=== PATIENT | female | born 1985 | race Caucasian/White ===

== ENCOUNTER 2020-07-05 09:59 | Emergency (ER) | payer OTHER, SELFPAY ==
[2020-07-05 10:08] VITALS: BP 122/82; PULSE 105; RESP 18; TEMP 36.8; O2SAT 100
[2020-07-05 10:10] VITALS: BP 122/82; PULSE 101; RESP 18; TEMP 36.8; O2SAT 100; BMI 103.7
[2020-07-05 10:20] VITALS: BP 139/98; PULSE 103; RESP 15; TEMP 36.7
[2020-07-05] MEDS: 0.9 % Sodium Chloride 1,000 ML 999 ML IVCONT (11:06)
[2020-07-05] MEDS: Metoclopramide HCl 10 MG/2 ML VIAL IVPUSH (11:07)
[2020-07-05] MEDS: methylPREDNISolone Sod Succ/PF 125 MG/2 ML VIAL IVPUSH (11:07)
[2020-07-05] MEDS: diphenhydrAMINE HCL 50 MG/ML VIAL 25 MG IVPUSH (11:07)
--- NOTE | 2020-07-05 11:47 | ED_ITS ---
HPI - Headache General Chief Complaint: Headache Stated Complaint: MIGRAINE Time Seen by Provider: 07/05/20 10:27 Source: patient Mode of arrival: ambulatory History of Present Illness HPI Narrative: 34-year-old female with a past medical history of pseudotumor cerebri complaining of constant migraine headache x1 month. Admits was recently seen and treated in ED for similar symptoms, had negative labs and head CT. Reports symptoms similar to prior migraines, not maximal at onset, has been taking at home medications without relief. Admits to visual changes/ seeing specks, nausea, vomiting, neck pain, photophobia. denies numbness, tingling, weakness, CP/SOB, head trauma MD elicited complaint: migraine Onset (ago): month(s) Related Data Allergies Allergy/AdvReac Type Severity Reaction Status Date / Time ibuprofen [Ibuprofen] Allergy Mild SWELLING Unverified 06/14/20 17:30 acetaminophen [From TYLENOL] Allergy Unknown UNKNOWN Unverified 06/14/20 17:30 Review of Systems Review of Systems: Constitutional: No Weight loss, No Fever, No Chills, No Night Sweats, No Fatigue ENT/Mouth: No Hearing loss, No Ear Pain, No Nasal Congestion, No Sinus Pain, No sore throat, No Rhinorrhea, No Swallowing Difficulty Eyes: No Eye Pain, No Swelling, No Redness, No Foreign Body, No Discharge, + Vision Changes (similar to prior migraines) Cardiovascular: No Chest Pain, No SOB, No Dyspnea on Exertion, No Orthopnea Respiratory: No Cough, No Sputum, No Wheezing Gastrointestinal: + Nausea, + Vomiting, No Diarrhea, No Constipation, No abdominal Pain Genitourinary: No Dysuria, No Urinary Frequency, No Hematuria Musculoskeletal: No joint pain, No Myalgias, No Joint Swelling Skin: No Skin Lesions, No rash Neuro: No Weakness, No Numbness, No Paresthesias, No Loss of Consciousness, No Dizziness, + Headache Yes all other systems are reviewed and are negative Eyes: Eyes: Denies photophobia Neurologic: Reports Abnormal speech present and Denies Sensory deficit (Neuro) [facility] Past Medical History Attestation statement: The following information was validated with the patient. Medical History (Updated 07/05/20 @ 11:52 by KAMILLA Anderson) Pseudotumor cerebri Social History Social History Alcohol intake: never Smoking Status: Never smoker Use of substances other than those prescribed or required for medical reasons: No Advance Directives: Yes Advance Directives Information Provided: No Advance Directives on File: No Physical Exam Vital Signs and I&O and Narrative: Vital Signs and I&O: Vital Signs Temp 98.1 F 07/05/20 12:00 Pulse 88 07/05/20 12:00 Resp 16 07/05/20 12:00 BP 109/65 07/05/20 12:00 Pulse Ox 99 07/05/20 12:00 Intake & Output 07/04/20 07/05/20 07/05/20 18:59 06:59 18:59 Weight 241 kg Body Mass Index 103.7 Const: General: cooperative and healthy appearing Orientation/consciousness: patient oriented x3 Limitations: no limitations HENMT: Head: Yes normal to inspection Ears: hearing grossly normal bilaterally General nose exam: Normal external nose present Face and sinus: Yes normal facial exam Mouth: Normal oral and palatal mucosa present Throat: Yes uvula midline Eyes: General: appearance normal, both eyes and all related structures Visual Zapata: normal visual zapata by confrontation Pupils: Equal, round and reactive pupils present EOM: EOMs intact bilaterally Direct Ophthalmoscopy: normal light reflex and No photophobia Neck: Neck: Yes normal visual inspection, Yes full ROM, Yes no lymphadenopathy, Yes no meningeal signs and Yes trachea midline Resp: Effort & Inspection: normal respiratory effort and no stridor Auscultation: clear to auscultation bilaterally Cardio: Rate: regular rate Heart sounds: S1 normal heart sound present and S2 normal heart sound present GI: Inspection: Yes normal to inspection Palpation (GI): Soft to palpation, nontender, no guarding and not rigid Skin: Wounds: no wounds Neuro: Other: ambulating with steady a General: patient oriented x3 and no meningeal signs Cranial nerves: Yes CN's II-XII intact bilaterally and Yes Equal, round and reactive pupils present Cognition (Neuro): normal cognition Speech: Abnormal speech present Gait exam (Neuro): Normal gait present Motor exam (neuro): 5/5 motor strength present throughout Sensory Exam: No Sensory deficit (Neuro) Extrem: General: Yes normal to inspection Course Course Course Narrative: 0690-- patient reports symptomatic improvement in the ED after symptomatic therapies. Requesting to be discharged. Discussed with patient she needs to follow-up with her neurologist MDM - Headache MDM Narrative Medical decision making narrative: 34-year-old female with a past medical history of pseudotumor cerebri complaining of constant migraine headache x1 month. Admits was recently seen and treated in ED for similar symptoms, had negative labs and head CT. Admits to visual changes/ seeing specks, nausea, vomiting, neck pain, photophobia. On exam VSS, NAD/ well-appearing, no focal ne uro deficits. Symptoms similar to prior migraine headaches. Low concern for ICH/meningitis/ encephalitis /SAH lab/ head CT from 06/26 reviewed and WNL plan: Symptomatic treatment, reassess Differential Diagnosis Differential diagnosis: Likely migraine, subarachnoid hemorrhage, headache and meningitis Medical Records Attestation: I reviewed the patient's medical records.
[2020-07-05 12:00] VITALS: BP 109/65; PULSE 88; RESP 16; TEMP 36.7; O2SAT 99
== END 2020-07-05 12:43 | disposition home or self-care (01) ==
PROVIDERS: Emergency Provider Internal Medicine; PCP Physician Assistant Medical
DX: R51.9 Headache, unspecified (principal); G93.2 Benign intracranial hypertension; Z79.899 Other long term (current) drug therapy
CPT/HCPCS: 96361; 96374; 96375; 99284; J1200; J2765; J2930

== ENCOUNTER 2020-07-20 08:27 | Emergency (ER) | payer OTHER, SELFPAY ==
[2020-07-20 09:02] VITALS: BP 120/87; PULSE 100; RESP 18; TEMP 36.5; O2SAT 96; BMI 47.0
--- NOTE | 2020-07-20 10:01 | CT_ITS ---
EXAMINATION: CT HEAD WITHOUT CONTRAST CLINICAL INFORMATION: History of pseudotumor cerebri COMPARISON: June 25, 2020 and January 16, 2019 TECHNIQUE: Contiguous axial imaging was performed from the skull base to vertex without intravenous administration of contrast. This CT examination was performed using dose optimization techniques as appropriate, variously including the following: *Automated exposure control *Adjustment of mA and/or kV according to patient size (this includes techniques or standardized protocols for targeted exams where dose is matched to indication/reason for exam; i.e. extremities or head) *Use of iterative reconstruction technique DLP: 732 mGy-cm FINDINGS: There is no evidence of acute intracranial hemorrhage or territorial infarction. No abnormal mass effect or midline shift is seen. Christianson to white matter differentiation is well preserved. No extra-axial fluid collections are identified. The ventricles are normal in size. There is no abnormal attenuation within the brain parenchyma. The osseous structures and soft tissues are normal. The mastoid air cells and visualized portions of the paranasal sinuses are well aerated. CT/CT head/brain wo con IMPRESSION: No acute intracranial pathology.
--- NOTE | 2020-07-20 10:06 | ED.HA ---
HPI - Headache General Chief Complaint: Headache Stated Complaint: MIGRAINE Time Seen by Provider: 07/20/20 09:01 Source: patient Mode of arrival: ambulatory Limitations: no limitations History of Present Illness HPI Narrative: patient comes to the emergency room complaining of a migraine headache. Patient is known to have pseudotumor cerebral. Patient states she has had multiple medications including IV Benadryl, Toradol, p.o.Fioricet and several other medications. Patient states that she called her neurologist last night, the left a voice message which the patient shared with me, instructing the patient to come to the emergency room to get a lumbar puncture. Patient states she has had 5 lumbar punctures in her last time, last 1 was approximately 1 year ago. Patient states that every time she gets a lumbar puncture, she gets severe rebound headache and is usually hospitalized for pain management overnight. Patient denies any neurological deficits MD elicited complaint: headache Related Data Previous Rx's Medication Instructions Recorded hydromorphone [Dilaudid] 2 mg PO Q8H #3 tab 07/20/20 metoclopramide HCl [Reglan] 5 mg PO Q6H PRN #5 tab 07/20/20 Allergies Allergy/AdvReac Type Severity Reaction Status Date / Time ibuprofen [Ibuprofen] Allergy Mild SWELLING Unverified 06/14/20 17:30 acetaminophen [From TYLENOL] Allergy Unknown UNKNOWN Verified 07/20/20 09:05 Review of Systems Review of Systems: Constitutional : No Weight loss, No Fever, No Chills, No Night Sweats, No Fatigue, No Malaise ENT/Mouth : No Hearing loss, No Ear Pain, No Nasal Congestion, No Sinus Pain, No Hoarseness, No sore throat, No Rhinorrhea, No Swallowing Difficulty Eyes: No Eye Pain, No Swelling, No Redness, No Foreign Body, No Discharge, No Vision Changes Cardiovascular : No Chest Pain, No SOB, No Dyspnea on Exertion, No Orthopnea, No Edema, No Palpitations Respiratory : No Cough, No Sputum, No Wheezing, No Smoke Exposure, No Dyspnea Gastrointestinal : No Nausea, No Vomiting, No Diarrhea, No Constipation, No abdominal Pain, No Hematochezia, No Melena Genitourinary : no irregular bleeding, No Dysuria, No Urinary Frequency, No Hematuria, No Urinary Incontinence, No Urgency, No Flank Pain, No Urinary Flow Changes, No Hesitancy Musculoskeletal : No joint pain, No Myalgias, No Joint Swelling Skin : No Skin Lesions, No rash Neuro : No Weakness, No Numbness, No Paresthesias, No Loss of Consciousness, No Dizziness, migraine headache, pressure sensation Psych : No Anxiety/Panic, No Depression, No SI/HI/AH/VH, No Social Issues, Heme/Lymph: No Bruising, No Bleeding,No Lymphadenopathy Endocrine : No Polyuria, No Polydipsia, No Temperature Intolerance [facility], [facility] Past Medical History Medical History Pseudotumor cerebri Social History Social History Alcohol intake: never Smoking Status: Never smoker Smoked in Last 30 Days: No Use of substances other than those prescribed or required for medical reasons: No Advance Directives: No Advance Directives Information Provided: No Physical Exam Vital Signs: Vital Signs: Vital Signs Temp Pulse Resp BP Pulse Ox 07/20/20 14:56 98 102/64 98 07/20/20 12:32 16 07/20/20 09:02 97.7 F 100 18 120/87 96 Body Mass Index 47.0 Appearance: Alert. Oriented X3. No acute distress. Eyes: Pupils equal, round and reactive to light. ENT: Pharynx normal. Neck: Normal inspection. Neck supple. No lymph nodes noted. No crepitus CVS: Normal heart rate and rhythm. Pulses normal. Normal S1 and S2 Respiratory: No respiratory distress. Breath sounds normal. No Wheezing. No rales Abdomen: Soft and nontender. No rigidity. No distention. good BS x4 Skin: Skin warm and dry. Normal skin color. Normal skin turgor. Extremities: No lower extremity edema. No lower extremity edema. No Lacerations. No Rash Neuro: Oriented X 3. No motor deficit. No sensory deficit. Moving all extermities. No slurred speech. Course Course Course Narrative: Patient's lumbar puncture was successful, opening pressure 35, CSF labs pending. Patient states that as expected, she has rebound migraine, very severe 07/07. I discussed the above-mentioned with our hospitalist, we will initially give her Dilaudid, diphenhydramine, Phenergan and we will re-evaluate the pain level, if patient is still not feeling well, she will be admitted. after IV medications, patient states she feels better, states that the pressure in her head is resolved, has residual headache. Patient is afraid that she will have rebound headache, I discussed with her that she we will send home with a prescription of 1 time oral Dilaudid and Reglan MDM - Headache Lab Data Result diagrams: 07/20/20 11:23 07/20/20 11:23 Labs: Lab Results 07/20/20 07/20/20 07/20/20 Range/Units 11:23 11: 11:23 WBC 10.7 (4.8-10.8) X10*3/uL RBC 4.97 (4.20-5.50) X10*6/uL Hgb 14.5 (12.0-16.0) g/dl Hct 45.8 (37-47) % MCV 92.2 (80-98) fL MCH 29.2 (27.0-33.0) pg MCHC 31.7 (31.0-35.0) g/dl RDW 13.2 (11.0-16.0) % Plt Count 178 (160-400) X10*3/uL MPV 11.0 (9.4-12.3) fL Immature Gran % (Auto) 0.4 (0.0-0.4) % Neut % (Auto) 68.3 (45-73) % Lymph % (Auto) 21.7 (20-40) % [place] % (Auto) 6.4 (2-11) % Eos % (Auto) 2.7 (0-4) % Baso % (Auto) 0.5 (0-2) % Lymph # (Auto) 2.3 (1.2-4.9) X10*3/uL [place] # (Auto) 0.7 (0.1-1.2) X10*3/uL Eos # (Auto) 0.3 (0.0-0.4) X10*3/uL Baso # (Auto) 0.1 (0.0-0.2) X10*3/uL Abs Immat Gran (auto) 0.04 H (0.00-0.03) X10*3/uL Absolute Neuts (auto) 7.3 (2.0-8.3) X10*3/uL Absolute Nucleated RBC 0.000 (0.0-0.012) X10*3/uL Nucleated RBC % (auto) 0.0 (0.0-0.2) /100WBC PT 12.3 (10.8-13.0) SEC INR 1.0 (0.9-1.1) Sodium 136 (135-145) mmol/L Potassium 4.1 (3.3-5.1) mmol/l Chloride 104 (96-108) mmol/L Carbon Dioxide 21 L (22-29) mmol/L Anion Gap 15 (12-20) BUN 13 (9-16) mg/dL Creatinine 0.79 (0.5-1.4) mg/dL Estim Creat Clear Calc 114.6 Estimated GFR > 60 Random Glucose 87 (60-115) mg/dL Calcium 9.4 (8.4-10.2) mg/dL CSF Tube Number CSF Volume ML CSF Appearance CSF Color CSF WBC MM*3 CSF RBC MM*3 CSF Lymphocytes % CSF Monocytes % % CSF Glucose mg/dL CSF Total Protein (15-45) mg/dL 07/20/20 07/20/20 07/20/20 Range/Units 13:01 13:01 13:01 WBC (4.8-10.8) X10*3/uL RBC (4.20-5.50) X10*6/uL Hgb (12.0-16.0) g/dl Hct (37-47) % MCV (80-98) fL MCH (27.0-33.0) pg MCHC (31.0-35.0) g/dl RDW (11.0-16.0) % Plt Count (160-400) X10*3/uL MPV (9.4-12.3) fL Immature Gran % (Auto) (0.0-0.4) % Neut % (Auto) (45-73) % Lymph % (Auto) (20-40) % [place] % (Auto) (2-11) % Eos % (Auto) (0-4) % Baso % (Auto) (0-2) % Lymph # (Auto) (1.2-4.9) X10*3/uL [place] # (Auto) (0.1-1.2) X10*3/uL Eos # (Auto) (0.0-0.4) X10*3/uL Baso # (Auto) (0.0-0.2) X10*3/uL Abs Immat Gran (auto) (0.00-0.03) X10*3/uL Absolute Neuts (auto) (2.0-8.3) X10*3/uL Absolute Nucleated RBC (0.0-0.012) X10*3/uL Nucleated RBC % (auto) (0.0-0.2) /100WBC PT (10.8-13.0) SEC INR (0.9-1.1) Sodium (135-145) mmol/L Potassium (3.3-5.1) mmol/l Chloride (96-108) mmol/L Carbon Dioxide (22-29) mmol/L Anion Gap (12-20) BUN (9-16) mg/dL Creatinine (0.5-1.4) mg/dL Estim Creat Clear Calc Estimated GFR Random Glucose (60-115) mg/dL Calcium (8.4-10.2) mg/dL CSF Tube Number 2 1 4 CSF Volume 3.0 3.5 ML CSF Appearance CLEAR CLEAR CLEAR CSF Color COLORLESS COLORLESS CSF WBC 2 2 MM*3 CSF RBC 0 0 MM*3 CSF Lymphocytes 50 100 % CSF Monocytes % 50 % CSF Glucose 60 mg/dL CSF Total Protein 38.7 (15-45) mg/dL Discharge Plan Discharge Clinical Impression: Pseudotumor cerebri Migraine Qualifiers: Migraine type: unspecified Status migrainosus presence: without status migrainosus Intractability: not intractable Qualified Code(s): G43.909 - Migraine, unspecified, not intractable, without status migrainosus Patient Disposition: Home, Self-Care Instructions: Migraine Headache (ED) Additional Instructions: 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 Please follow-up with your primary care physician tomorrow. If you have any worsening or new symptoms, please return to the emergency room or call 911 Prescriptions: New metoclopramide HCl [Reglan] 5 mg tablet 5 mg PO Q6H PRN (Reason: nausea and vomiting) Qty: 5 RF: 0 hydromorphone [Dilaudid] 2 mg tablet 2 mg PO Q8H Qty: 3 RF: 0
[2020-07-20 11:28] LABS: MANUAL DIFF FLAG NO
[2020-07-20 11:29] LABS: Basophils Absolute Auto 0.1 X10*3/uL (0.0-0.2); Basophils Percent Auto 0.5 % (0-2); Eosinophils Absolute Auto 0.3 X10*3/uL (0.0-0.4); Eosinophils Percent Auto 2.7 % (0-4); Hematocrit 45.8 % (37-47); Hemoglobin 14.5 g/dl (12.0-16.0); Imm Gran Abs Auto 0.04 X10*3/uL (0.00-0.03); Imm Gran Pct Auto 0.4 % (0.0-0.4); Lymphocytes Absolute Auto 2.3 X10*3/uL (1.2-4.9); Lymphocytes Percent Auto 21.7 % (20-40); Mean Corpuscular HGB Conc 31.7 g/dl (31.0-35.0); Mean Corpuscular Hemoglobin 29.2 pg (27.0-33.0); Mean Corpuscular Volume 92.2 fL (80-98); Monocytes Absolute Auto 0.7 X10*3/uL (0.1-1.2); Monocytes Percent Auto 6.4 % (2-11); Neutrophils Absolute Auto 7.3 X10*3/uL (2.0-8.3); Neutrophils Percent Auto 68.3 % (45-73); Platelet Count 178 X10*3/uL (160-400); Red Blood Count 4.97 X10*6/uL (4.20-5.50); Red Cell Distribution Width 13.2 % (11.0-16.0); White Blood Count 10.7 X10*3/uL (4.8-10.8)
[2020-07-20 11:49] LABS: Anion Gap 15 (12-20); Blood Urea Nitrogen 13 mg/dL (9-16); Calcium 9.4 mg/dL (8.4-10.2); Carbon Dioxide 21 mmol/L (22-29); Chloride 104 mmol/L (96-108); Creatinine Clr Calc Pharmacy 114.6; Estimated Glomerular Filt Rate > 60; Glucose Random 87 mg/dL (60-115); Potassium 4.1 mmol/l (3.3-5.1); Sodium 136 mmol/L (135-145)
[2020-07-20 11:58] LABS: Prothrombin Time 12.3 SEC (10.8-13.0)
[2020-07-20] MEDS: Morphine Sulfate 2 MG/ML CARTRIDGE 1 MG IVPUSH (12:02)
[2020-07-20] MEDS: ondansetron HCL 4 MG/2 ML VIAL IVPUSH (12:02)
--- NOTE | 2020-07-20 12:14 | FL_ITS ---
EXAMINATION: XR LUMBAR PUNCTURE CLINICAL INFORMATION: Headache, pseudotumor cerebri. COMPARISON: None TECHNIQUE: Following explaining fluoroscopy-guided lumbar puncture procedure, benefits and risk, a written consent was obtained. Patient was placed prone on fluoroscopy table and low back area was cleaned and draped in usual sterile manner. 1% lidocaine was injected at puncture site. A 20-gauge spinal needle was then inserted from the skin intrathecally at the L3-L4 disc. Patient was placed in left lateral decubitus view after observing CSF return following removal of stylet. Opening CSF pressure was obtained in left lateral decubitus view. Subsequently, fluid was collected in 4 test tubes. Stylet was reintroduced and needle withdrawn. Complete hemostasis achieved at puncture site with sterile Band-Aid applied post procedure. Patient tolerated procedure extremely well. FINDINGS: On fluoroscopy imaging, there is maintained lumbar lordosis. The vertebral heights and alignment are normal. Fluoroscopy-guided L3-L4 lumbar puncture was performed. Opening CSF pressure measured 33 cm/water. Approximately 14 mL of clear CSF fluid was collected in 4 test tubes. FLUOROSCOPY TIME: 0.5 minutes DOSE AREA PRODUCT: 6.925 uGy-m2 (microgray-meter squared) FL/FL guided lumbar puncture LP IMPRESSION: Successful fluoroscopy-guided lumbar puncture performed without immediate complications.
[2020-07-20 12:32] VITALS: RESP 16
--- NOTE | 2020-07-20 12:32 | PC.NURSE ---
PT TO IR
[2020-07-20 14:00] LABS: Appearance CSF CLEAR; CSF Tube # 2
[2020-07-20] MEDS: HYDROmorphone HCl 1 MG/ML SYRINGE IVPUSH (14:01)
[2020-07-20 14:09] LABS: Glucose CSF 60 mg/dL; Total Protein CSF 38.7 mg/dL (15-45)
[2020-07-20 14:22] LABS: Appearance CSF CLEAR
[2020-07-20 14:23] LABS: CSF Monos 50 %; CSF Tube # 1; Color CSF COLORLESS; Lymphocytes CSF 50 %; Red Blood Cell CSF 0 MM*3; White Blood Cell CSF 2 MM*3
[2020-07-20 14:34] LABS: Appearance CSF CLEAR; CSF Tube # 4; CSF Volume 3.5 ML
[2020-07-20 14:35] LABS: Color CSF COLORLESS; Lymphocytes CSF 100 %; Red Blood Cell CSF 0 MM*3; White Blood Cell CSF 2 MM*3
[2020-07-20] MEDS: Metoclopramide HCl 10 MG/2 ML VIAL IVPUSH (14:54)
[2020-07-20] MEDS: diphenhydrAMINE HCL 50 MG/ML VIAL IVPUSH (14:54)
[2020-07-20 14:56] VITALS: BP 102/64; PULSE 98; O2SAT 98
== END 2020-07-20 15:29 | disposition home or self-care (01) ==
PROVIDERS: Emergency Provider Emergency Medicine
DX: G43.909 Migraine, unspecified, not intractable, without status migrainosus (principal); G93.2 Benign intracranial hypertension
CPT/HCPCS: 36415; 62328; 70450; 80048; 82945; 84157; 85025; 85610; 89051; 96374; 96375; 99284; J1170; J1200; J2270; J2765

== ENCOUNTER 2020-07-24 21:13 | Emergency (ER) | payer OTHER, SELFPAY ==
--- NOTE | 2020-07-24 22:50 | PC.NURSE ---
pt left without treatment. pt was not trieged. time pt left [id number]
== END 2020-07-24 23:13 | disposition left against medical advice (07) ==
LOC: HO.ED 23:10
PROVIDERS: Emergency Provider Internal Medicine
DX: M54.6 Pain in thoracic spine (principal)

== ENCOUNTER 2021-05-29 12:58 | Emergency (ER) | payer OTHER, SELFPAY ==
--- NOTE | ~2021-05-29 | US_ITS ---
EXAMINATION: US PELVIS TRANSVAGINAL CLINICAL INFORMATION: Lower abdominal pain with history of PCOS COMPARISON: February 28, 2018 TECHNIQUE: Transcutaneous and transvaginal pelvic ultrasound. Transvaginal scanning was performed after voiding to better evaluate the endometrium and adnexa. FINDINGS: The uterus measures 8.3 x 4.6 x 5.5 cm. The uterus is anteverted. No suspicious abnormalities region of the cervix. The uterine contour is smooth. The endometrium measures 0.8 cm. Within the upper uterine segment and fundus there is a 1.4 x 1.4 x 1.0 cm well-circumscribed hypoechoic lesion consistent with fibroid. This is similar in size to previous study. The right ovary measures approximately 3.9 x 2.5 x 3.2 cm. The calculated right ovarian volume is approximately 16.3 mL. There is a corpus luteum cyst with hyperemic margin. This measures approximately 1.7 x 1.9 x 1.9 cm in size. No suspicious masses identified. Normal blood flow to the adnexa is present. The left ovary measures 2.4 x 1.5 x 1.5 cm. The calculated left ovarian volume is approximately 2.6 mL. No abnormal left adnexal mass. Normal vascularity present. No significant free pelvic fluid. US/US pelvic and transvaginal IMPRESSION: Small fundal/upper uterine segment fibroid. 2.4 cm left corpus luteal cyst.
[2021-05-29 13:09] VITALS: BP 122/83; PULSE 94; RESP 16; TEMP 36.2; O2SAT 98; BMI 46.0
[2021-05-29 13:35] LABS: MANUAL DIFF FLAG NO
[2021-05-29 13:38] LABS: Basophils Absolute Auto 0.1 X10*3/uL (0.0-0.2); Basophils Percent Auto 0.5 % (0-2); Eosinophils Absolute Auto 0.2 X10*3/uL (0.0-0.4); Eosinophils Percent Auto 1.9 % (0-4); Hematocrit 42.5 % (37-47); Hemoglobin 13.9 g/dl (12.0-16.0); Imm Gran Abs Auto 0.03 X10*3/uL (0.00-0.03); Imm Gran Pct Auto 0.3 % (0.0-0.4); Lymphocytes Absolute Auto 2.2 X10*3/uL (1.2-4.9); Lymphocytes Percent Auto 23.4 % (20-40); Mean Corpuscular HGB Conc 32.7 g/dl (31.0-35.0); Mean Corpuscular Hemoglobin 30.2 pg (27.0-33.0); Mean Corpuscular Volume 92.2 fL (80-98); Mean Platelet Volume 11.1 fL (9.4-12.3); Monocytes Absolute Auto 0.6 X10*3/uL (0.1-1.2); Monocytes Percent Auto 6.4 % (2-11); Neutrophils Absolute Auto 6.2 X10*3/uL (2.0-8.3); Neutrophils Percent Auto 67.5 % (45-73); Platelet Count 201 X10*3/uL (160-400); Red Blood Count 4.61 X10*6/uL (4.20-5.50); Red Cell Distribution Width 13.7 % (11.0-16.0); White Blood Count 9.3 X10*3/uL (4.8-10.8)
[2021-05-29 13:55] LABS: Alanine Aminotransferase 13 U/L (0-31); Albumin Level 4.3 g/dL (3.5-5.0); Alkaline Phosphatase 54 U/L (39-117); Anion Gap 12 (12-20); Aspartate Amino Transferase 10 U/L (5-31); Bilirubin Total 0.2 mg/dL (0.0-1.0); Blood Urea Nitrogen 10 mg/dL (9-16); Calcium 9.7 mg/dL (8.4-10.2); Carbon Dioxide 19 mmol/L (22-29); Chloride 110 mmol/L (96-108); Creatinine Clr Calc Pharmacy 113.5; Estimated Glomerular Filt Rate > 60; Glucose Random 99 mg/dL (60-115); Potassium 3.9 mmol/L (3.3-5.1); Sodium 137 mmol/L (135-145)
--- NOTE | 2021-05-29 14:12 | ED.ABDPAIN ---
HPI - Abdominal Pain General Chief Complaint: Abdominal Pain Stated Complaint: abd pain radiating to back Time Seen by Provider: 05/29/21 14:11 Source: patient Mode of arrival: ambulatory Limitations: no limitations History of Present Illness MD elicited complaint: abdominal pain Pertinent past history: other (ovarian cyst) Onset (ago): month(s) (2) Pain Consistency: constant Location: suprapubic and pelvis Severity: mild Quality: aching Radiation: none Migration to: no migration Exacerbating factors: nothing Relieving factors: nothing Context: history of similar episodes Associated symptoms: denies other symptoms Treatments prior to arrival: other (hot showers help) Related Data Previous Rx's Medication Instructions Recorded hydromorphone 2 mg tablet 2 mg PO Q8H #3 tab 07/20/20 (Dilaudid) metoclopramide HCl 5 mg tablet 5 mg PO Q6H PRN #5 tab 07/20/20 (Reglan) cyclobenzaprine 10 mg tablet 10 mg PO TID PRN #14 tab 05/29/21 ondansetron 4 mg disintegrating 4 mg PO Q8H PRN #20 tab 05/29/21 tablet Allergies Allergy/AdvReac Type Severity Reaction Status Date / Time ibuprofen [Ibuprofen] Allergy Mild SWELLING Unverified 06/14/20 17:30 acetaminophen [From TYLENOL] Allergy Unknown UNKNOWN Verified 07/20/20 09:05 Review of Systems Review of Systems Constitutional : No Weight loss, No Fever, No Chills ENT/Mouth : No sore throat, No Rhinorrhea Eyes: No Swelling, No Redness Cardiovascular : No Chest Pain, No SOB, NoEdema Respiratory : No Cough, No Sputum, No Wheezing Gastrointestinal : no Nausea, no Vomiting, no Diarrhea, positive abdominal Pain, No Hematochezia, No Melena Genitourinary : No Dysuria, No Urinary Frequency, No Hematuria, No Urgency Musculoskeletal : No joint pain, No Myalgias, No Joint Swelling Skin : No Skin Lesions, No rash Neuro : No Weakness, No Numbness, No Dizziness, No Headache Psych : No Anxiety/Panic, No Depression Heme/Lymph: No Bruising, No Lymphadenopathy Endocrine : No Polyuria, No Polydipsia All other systems reviewed and are negative. Physical Exam Vital Signs: Vital Signs: Last Vital Signs Temp 98.4 F 05/29/21 15:58 Pulse 80 05/29/21 15:58 Resp 16 05/29/21 15:58 BP 123/79 05/29/21 15:58 Pulse Ox 98 05/29/21 15:58 Body Mass Index 46.0 Appearance: Alert. Oriented X3. No acute distress. Eyes: Pupils equal, round and reactive to light. ENT: Pharynx normal. Neck: Normal inspection. Neck supple. CVS: Normal heart rate and rhythm. Pulses normal. Respiratory: No respiratory distress. Breath sounds normal. Abdomen: Soft and mild suprapubic ttp no rebound or guarding Skin: Skin warm and dry. Normal skin color. Normal skin turgor. Extremities: No lower extremity edema. No calf ttp Neuro: Oriented X 3. No motor deficit. No sensory deficit. Course Course Course Narrative: no acute findings stable for DC will treat for pain and refer to PCP MDM - Abdominal Pain MDM Narrative Medical decision making narrative: 35 yo female with 2 months of worsening lower abdominal pain no associated GI / complaints has not been able to see her PCP - at this time given duration doubt appendicitis or colitis, possible increased in cysts vs chronic pelvic pain syndrome, labs, UA, morphine PO for pain, US to evaluate uterus and ovaries Lab Data Result diagrams: 05/29/21 13:31 05/29/21 13:31 Labs: Lab Results 05/29/21 05/29/21 05/29/21 Range/Units 13:31 13:31 14:51 WBC 9.3 (4.8-10.8) X10*3/uL RBC 4.61 (4.20-5.50) X10*6/uL Hgb 13.9 (12.0-16.0) g/dl Hct 42.5 (37-47) % MCV 92.2 (80-98) fL MCH 30.2 (27.0-33.0) pg MCHC 32.7 (31.0-35.0) g/dl RDW 13.7 (11.0-16.0) % Plt Count 201 (160-400) X10*3/uL MPV 11.1 (9.4-12.3) fL Immature Gran % (Auto) 0.3 (0.0-0.4) % Neut % (Auto) 67.5 (45-73) % Lymph % (Auto) 23.4 (20-40) % [place] % (Auto) 6.4 (2-11) % Eos % (Auto) 1.9 (0-4) % Baso % (Auto) 0.5 (0-2) % Lymph # (Auto) 2.2 (1.2-4.9) X10*3/uL [place] # (Auto) 0.6 (0.1-1.2) X10*3/uL Eos # (Auto) 0.2 (0.0-0.4) X10*3/uL Baso # (Auto) 0.1 (0.0-0.2) X10*3/uL Abs Immat Gran (auto) 0.03 (0.00-0.03) X10*3/uL Absolute Neuts (auto) 6.2 (2.0-8.3) X10*3/uL Absolute Nucleated RBC 0.000 (0.0-0.012) X10*3/uL Nucleated RBC % (auto) 0.0 (0.0-0.2) /100WBC Sodium 137 (135-145) mmol/L Potassium 3.9 (3.3-5.1) mmol/L Chloride 110 H (96-108) mmol/L Carbon Dioxide 19 L (22-29) mmol/L Anion Gap 12 (12-20) BUN 10 (9-16) mg/dL Creatinine 0.78 (0.5-1.4) mg/dL Estim Creat Clear Calc 113.5 Estimated GFR > 60 Random Glucose 99 (60-115) mg/dL Calcium 9.7 (8.4-10.2) mg/dL Total Bilirubin 0.2 (0.0-1.0) mg/dL AST 10 (5-31) U/L ALT 13 (0-31) U/L Alkaline Phosphatase 54 (39-117) U/L Total Protein 7.0 (6.5-8.0) g/dL Albumin 4.3 (3.5-5.0) g/dL Lipase 26 (8-78) U/L Urine Color Urine Appearance Urine pH (5.0-8.0) Ur Specific [place] (1.005-1.025) Urine Protein (NEG-TRACE) MG/DL Urine Glucose (UA) (NEG) MG/DL Urine Ketones (NEG) MG/DL Urine Blood (NEG) Urine Nitrite (NEG) Ur Leukocyte Esterase (NEG) Urine Test NEGATIVE (NEGATIVE) 05/29/21 Range/Units 14:52 WBC (4.8-10.8) X10*3/uL RBC (4.20-5.50) X10*6/uL Hgb (12.0-16.0) g/dl Hct (37-47) % MCV (80-98) fL MCH (27.0-33.0) pg MCHC (31.0-35.0) g/dl RDW (11.0-16.0) % Plt Count (160-400) X10*3/uL MPV (9.4-12.3) fL Immature Gran % (Auto) (0.0-0.4) % Neut % (Auto) (45-73) % Lymph % (Auto) (20-40) % [place] % (Auto) (2-11) % Eos % (Auto) (0-4) % Baso % (Auto) (0-2) % Lymph # (Auto) (1.2-4.9) X10*3/uL [place] # (Auto) (0.1-1.2) X10*3/uL Eos # (Auto) (0.0-0.4) X10*3/uL Baso # (Auto) (0.0-0.2) X10*3/uL Abs Immat Gran (auto) (0.00-0.03) X10*3/uL Absolute Neuts (auto) (2.0-8.3) X10*3/uL Absolute Nucleated RBC (0.0-0.012) X10*3/uL Nucleated RBC % (auto) (0.0-0.2) /100WBC Sodium (135-145) mmol/L Potassium (3.3-5.1) mmol/L Chloride (96-108) mmol/L Carbon Dioxide (22-29) mmol/L Anion Gap (12-20) BUN (9-16) mg/dL Creatinine (0.5-1.4) mg/dL Estim Creat Clear Calc Estimated GFR Random Glucose (60-115) mg/dL Calcium (8.4-10.2) mg/dL Total Bilirubin (0.0-1.0) mg/dL AST (5-31) U/L ALT (0-31) U/L Alkaline Phosphatase (39-117) U/L Total Protein (6.5-8.0) g/dL Albumin (3.5-5.0) g/dL Lipase (8-78) U/L Urine Color YELLOW Urine Appearance CLEAR Urine pH 6.0 (5.0-8.0) Ur Specific [place] 1.020 (1.005-1.025) Urine Protein NEG (NEG-TRACE) MG/DL Urine Glucose (UA) NEG (NEG) MG/DL Urine Ketones NEG (NEG) MG/DL Urine Blood NEG (NEG) Urine Nitrite NEG (NEG) Ur Leukocyte Esterase NEG (NEG) Urine Test (NEGATIVE) Discharge Plan Discharge Clinical Impression: Fibroid Abdominal pain Qualifiers: Abdominal location: lower abdomen, unspecified Qualified Code(s): R10.30 - Lower abdominal pain, unspecified Ovarian cyst Qualifiers: Laterality: right Qualified Code(s): N83.201 - Unspecified ovarian cyst, right side Patient Disposition: Home, Self-Care Instructions: Ovarian Cyst (ED), Abdominal Pain (ED) Additional Instructions: return to ED for any worsening symptoms or concerns Prescriptions: New cyclobenzaprine 10 mg tablet 10 mg PO TID PRN (Reason: muscle spasm) Qty: 14 RF: 0 ondansetron 4 mg tablet,disintegrating 4 mg PO Q8H PRN (Reason: nausea and vomiting) Qty: 20 RF: 0 No Action metoclopramide HCl [Reglan] 5 mg tablet 5 mg PO Q6H PRN (Reason: nausea and vomiting) Qty: 5 RF: 0 hydromorphone [Dilaudid] 2 mg tablet 2 mg PO Q8H Qty: 3 RF: 0 Stand Alone Forms: Work/School Release [facility] Past Medical History Attestation statement: The following information was validated with the patient. Medical History (Updated 05/29/21 @ 16:20 by Khalida Mcallister DO) Anxiety Depression Insomnia PCOS (polycystic ovarian syndrome) Pseudotumor cerebri PTSD (post-traumatic stress disorder) Surgical History (Updated 05/29/21 @ 14:50 by Khalida Mcallister DO) Hx of cholecystectomy Tubal ligation status Social History Social History Alcohol intake: never Smoked in Last 30 Days: No Use of substances other than those prescribed or required for medical reasons: Yes Substance Use Type: Marijuana Advance Directives: Yes Advance Directives Information Provided: Yes Advance Directives on File: No
[2021-05-29 14:25] VITALS: BP 128/95; PULSE 87; RESP 15; TEMP 36.7; O2SAT 98
[2021-05-29] MEDS: Ondansetron ODT 4 MG TAB.RAPDIS TRANSLINGU (14:56)
[2021-05-29] MEDS: Morphine Sulfate Immed Release 15 MG TABLET PO (14:56)
[2021-05-29 15:14] LABS: Glucose Urine UA NEG (NEG); Leukocyte Esterase Urine NEG (NEG); Nitrite Urine NEG (NEG); Urine Blood NEG (NEG); Urine Ketones NEG (NEG); Urine Protein NEG (NEG-TRACE)
[2021-05-29 15:15] LABS: Appearance Urine CLEAR; Color Urine YELLOW
[2021-05-29 15:24] LABS: Lipase 26 U/L (8-78)
[2021-05-29 15:33] LABS: UPreg QC Valid YES; Urine Pregnancy NEGATIVE (NEGATIVE)
[2021-05-29 15:58] VITALS: BP 123/79; PULSE 80; RESP 16; TEMP 36.9; O2SAT 98
== END 2021-05-29 16:58 | disposition home or self-care (01) ==
PROVIDERS: Emergency Provider Emergency Medicine
DX: D25.9 Leiomyoma of uterus, unspecified (principal); N83.12 Corpus luteum cyst of left ovary; R10.30 Lower abdominal pain, unspecified; E28.2 Polycystic ovarian syndrome
CPT/HCPCS: 36415; 76830; 76856; 80053; 81003; 81025; 83690; 85025; 99284